=== PATIENT | male | born 1965 | race Caucasian/White ===

== ENCOUNTER 2019-08-31 14:46 | Emergency (ER) | payer BC ==
[2019-08-31 15:38] LABS: HEMATOCRIT 46.7 % (39.0-50.0); HEMOGLOBIN 15.6 g/dl (14.0-18.0); IMMATURE GRANULOCYTES 0.5 % (0.0-5.0); MEAN CELL VOLUME 90.5 fL CALC (80.0-100.0); MEAN CORPUSCULAR HGB 30.2 pG CALC (26.0-32.0); MEAN CORPUSCULAR HGB CONC 33.4 g/dL CAL (32.0-36.0); RED BLOOD COUNT 5.16 mill/uL (4.70-6.10); RED CELL DISTRI WIDTH 13.1 % (11.5-15.5)
[2019-08-31] MEDS ORDERED: PROAIR HFA IN (15:40)
[2019-08-31] MEDS ORDERED: OXY1 (15:41)
[2019-08-31] MEDS ORDERED: FLONASE SE27.5 MCG/S (15:42)
[2019-08-31] MEDS ORDERED: FLONASE AL50 MCG/ACT (15:42)
[2019-08-31] MEDS ORDERED: BAYER ASPIRIN E81 MG PO (15:43)
[2019-08-31] MEDS ORDERED: ZYRTEC10 M5 PO (15:44)
[2019-08-31 15:55] LABS: ALBUMIN 4.2 g/dL (3.2-5.0); ALKALINE PHOSPHATASE 98 u/l (38-126); ANION GAP 13 (6-22 (CALC)); BILIRUBIN, TOTAL 0.8 mg/dL (0.0-1.4); BUN 14 mg/dL (9-20); BUN/CREATININE RATIO 14 (12-20 (CALC)); CARBON DIOXIDE 25 mmol/l (22-30); CHLORIDE 103 mmol/l (95-108); GFR > 60 ML/MIN (>=60 (CALC)); GFR FOR AFR.AMER. > 60 ML/MIN (>=60 (CALC)); SGOT/AST 45 u/l (17-59); SODIUM 137 mmol/l (137-146); TOTAL PROTEIN 7.5 g/dL (6.3-8.2)
[2019-08-31 16:16] VITALS: BP 133/61
--- NOTE | 2019-09-03 10:38 | NUR ---
Notified patient of Covid results (Negative.) Advised patient to follow up with PCP or return to ED with urgent needs. Advised patient to continue practicing Covid prevention. Patient verbalized understanding.
== END 2019-08-31 16:31 | disposition home or self-care (01) | DRG 866 ==
LOC: ED 14:46
DX: B34.9 Viral infection, unspecified (principal); R06.02 Shortness of breath; J44.9 Chronic obstructive pulmonary disease, unspecified; Z87.891 Personal history of nicotine dependence; Z20.828 Contact with and (suspected) exposure to other viral communicable diseases

== ENCOUNTER 2021-03-19 16:24 | Emergency (ER) | payer OTHER ==
[~2021-03-19] VITALS: Ht 167.6 cm; Wt 107.6 kg
[~2021-03-19 16:24] MED LIST: BAYER ASPIRIN E81 MG PO; FLONASE AL50 MCG/ACT; FLONASE SE27.5 MCG/S; OXY1; PROAIR HFA IN; ZYRTEC10 M5 PO
[2021-03-19 19:02] LABS: HEMATOCRIT 45.9 % (39.0-50.0); HEMOGLOBIN 15.6 g/dl (14.0-18.0); IMMATURE GRANULOCYTES 0.2 % (0.0-5.0); MEAN CORPUSCULAR HGB 31.3 pG CALC (26.0-32.0); NEUT# 10.81 thou/uL (1.82-7.42); RED BLOOD COUNT 4.99 mill/uL (4.70-6.10); URINE BILIRUBIN - DIPSTICK NEGATIVE (NEGATIVE); URINE BLOOD DIPSTICK LARGE (NEGATIVE); URINE COLOR YELLOW; URINE GLUCOSE - DIPSTICK NEGATIVE (NEGATIVE); URINE KETONE NEGATIVE (NEGATIVE); URINE PROTEIN - DIPSTICK NEGATIVE (NEG-TRACE); URINE UROBILINOGEN - DIPSTICK 0.2 E.U./dL (0.2)
[2021-03-19 19:03] LABS: URINE LEUK ESTERASE MODERATE (NEGATIVE); URINE NITRITE - DIPSTICK POSITIVE (Negative)
[2021-03-19 19:23] LABS: ALBUMIN 4.6 g/dL (3.2-5.0); ALKALINE PHOSPHATASE 113 u/l (38-126); ANION GAP 13 (6-22 (CALC)); BILIRUBIN, TOTAL 0.8 mg/dL (0.0-1.4); BUN 18 mg/dL (9-20); BUN/CREATININE RATIO 15 (12-20 (CALC)); CARBON DIOXIDE 29 mmol/l (22-30); CHLORIDE 100 mmol/l (95-108); CREATININE 1.2 mg/dL (0.7-1.3); GFR > 60 ML/MIN (>=60 (CALC)); GFR FOR AFR.AMER. > 60 ML/MIN (>=60 (CALC)); POTASSIUM 4.6 mmol/l (3.5-5.1); SGOT/AST 37 u/l (17-59); SODIUM 138 mmol/l (137-146); TOTAL PROTEIN 8.1 g/dL (6.3-8.2)
[2021-03-19] MEDS ORDERED: VOLTAREN75 MG PO (20:27)
[2021-03-19] MEDS ORDERED: TAMSULOSIN0.4 MG PO (20:27)
[2021-03-19] MEDS ORDERED: BACTRIM DS1 TAB PO (20:27)
[2021-03-19 20:30] VITALS: BP 152/82
== END 2021-03-19 20:40 | disposition home or self-care (01) | DRG 694 ==
LOC: ED 16:24
PROVIDERS: Family Medicine
DX: N20.2 Calculus of kidney with calculus of ureter (principal); N39.0 Urinary tract infection, site not specified; N32.9 Bladder disorder, unspecified; J44.9 Chronic obstructive pulmonary disease, unspecified; E78.00 Pure hypercholesterolemia, unspecified; F32.A Depression, unspecified